=== PATIENT | female | born 1970 | race Caucasian/White ===

== ENCOUNTER 2023-12-08 12:58 | Emergency (ER) | payer OTHER, SELFPAY ==
[2023-12-08 13:00] VITALS: BP 133/79
--- NOTE | 2023-12-08 14:56 | ED.GENMED ---
History of Present Illness
<Erin Samuels PA-C - Last Filed: 12/08/23 23:22>
General
Chief Complaint: Throat Problem
Source: patient
Exam Limitations: none
Time Seen by Provider: 12/08/23 14:49
Nursing documentation reviewed up to this point in time: agreed with
Travel History
Have you had any contact with someone who has COVID-19?: No
Do you have any symptoms of coronavirus? Fever > 100 degrees, chills, cough, shortness of breath, sore throat, loss of taste or smell, muscle aches, or headache?: No
History of Present Illness
History of Present Illness:
Patient is a 53-year-old female with no significant past medical history presenting for evaluation of rapidly increasing blood. Patient states the goiter has been present for over 2 years but over the past 2 weeks has been increasing rapidly in
size. She saw her primary care provider back in April where they tested her thyroid levels which were normal range. Her PCP did refer her for an ultrasound of her thyroid which she never had completed. She does endorse some mild palpitations over
the past few weeks and fatigue. She came to the emergency department today due to the rapid increase in size for the past few weeks and concern with she denies any diarrhea, constipation, menstrual irregularities, fever, chills, weight loss. She
denies any sore throat, infectious symptoms.
She does have a family history of thyroid cancer.
Phy Exam
<Erin Samuels PA-C - Last Filed: 12/08/23 23:22>
Physical Exam
Physical Exam:
General: Well appearing and non-toxic
Vitals: Vital signs stable, afebrile
HEENT: Atraumatic, normocephalic; pupils equal round and reactive to light bilaterally, extraocular muscles intact, protecting airway, posterior pharynx nonerythematous with no tonsillar edema or exudates, uvula midline
Neck: Large goiter/thyroid mass on left anterior neck, normal range of motion of neck
CV: Regular rate and rhythm, heart sounds normal, no evidence of cyanosis
Resp: No evidence of respiratory distress, lungs clear, no accessory muscle use
Abd: Soft, nontender in all 4 quadrants, non-distended
Extremities: No deformities, no evidence of cyanosis or edema
Neuro: alert and oriented x 3, grossly
Psych: Somewhat anxious appearing
Skin: Intact, no rashes
Course
<Erin Samuels PA-C - Last Filed: 12/08/23 23:22>
Orders/Labs/Results
Orders:
Orders
12/08/23 15:17
Electrocardiogram (*1) Urgent
Reason for Study: Palpitations
EKG- Treatment ONCE
12/08/23 15:22
Complete Blood Count/With Diff Urgent
Comprehensive Metabolic Panel Urgent
Free T4 Urgent
TSH Reflex To Free T4 Urgent
Abnormal Lab Results
12/08/23
15:22
Hct 36.9 L %
(37.0-47.0)
TSH (Reflex) 0.37 L uIU/ml
(0.47-4.68)
12/08/23 15:22
12/08/23 15:22
Vital Signs
Initial and Last Documented VS:
Initial Vital Signs
Temp Pulse Resp BP Pulse Ox
98.1 F 75 16 133/79 99
12/08/23 13:00 12/08/23 13:00 12/08/23 13:00 12/08/23 13:00 12/08/23 13:00
Last Documented Vital Signs
Temp Pulse Resp BP Pulse Ox
98.1 F 71 16 128/81 99
12/08/23 13:00 12/08/23 17:11 12/08/23 17:11 12/08/23 17:11 12/08/23 17:11
<Tyrese Gallegos MD - Last Filed: 12/08/23 16:12>
Orders/Labs/Results
Orders:
Orders
12/08/23 15:17
Electrocardiogram (*1) Urgent
Reason for Study: Palpitations
EKG- Treatment ONCE
12/08/23 15:22
Complete Blood Count/With Diff Urgent
Comprehensive Metabolic Panel Urgent
Free T4 Urgent
TSH Reflex To Free T4 Urgent
Abnormal Lab Results
12/08/23
15:22
Hct 36.9 L %
(37.0-47.0)
TSH (Reflex) 0.37 L uIU/ml
(0.47-4.68)
12/08/23 15:22
12/08/23 15:22
Vital Signs
Initial and Last Documented VS:
Initial Vital Signs
Temp Pulse Resp BP Pulse Ox
98.1 F 75 16 133/79 99
12/08/23 13:00 12/08/23 13:00 12/08/23 13:00 12/08/23 13:00 12/08/23 13:00
Last Documented Vital Signs
Temp Pulse Resp BP Pulse Ox
98.1 F 71 16 128/81 99
12/08/23 13:00 12/08/23 17:11 12/08/23 17:11 12/08/23 17:11 12/08/23 17:11
<Erin Samuels PA-C - Last Filed: 12/08/23 23:22>
MDM/Problems Addressed
Differential Diagnosis Includes:
Graves disease, thyroiditis, subclinical thyroiditis, thyroid cancer, thyroid cyst
MDM/Problems Addressed:
Patient is a 53 year old female presenting for evaluation of goiter on anterior neck rapidly progressing in size over the past few weeks. Patient states has been present over 2 years and was seen by PCP in April but never had US performed. She
reports no history of abnormal thyroid function tests. She endorses some fatigue and heart palpitations. No fever, chills, sore throat, difficulty breathing, weight loss. Patients VSS. Physical exam as documented above. She does have a large,
somewhat irregular anterior left neck mass.
There are so infectious signs. Patient will require outpatient imaging. Will check EKG, basic labs, TSH today. Attending physician spoke with patients PCP to arrange prompt outpatient follow-up later this week.
CBC and CMP without any clinically significant abnormalities. TSH slightly decreased but T4 in normal range. EKG shows normal sinus rhythm without signs of ischemia. Patient stable for discharge with outpatient follow-up later this week. Patient
comfortable with this plan. All questions answered.
Chronic conditions affecting care:
N/A
Acute Exacerbation and/or Progression of Chronic Illness:
N/A
<Erin Samuels PA-C - Last Filed: 12/08/23 23:22>
*Pulse Oximetry
Patient hypoxic: no
*EKG
Interpreted by ED Provider?: Yes
EKG Intrepretation Date: 12/08/23
Interpretation: normal
Comparison EKG: no comparison EKG present
Heart Rate: 66
Rate: normal
Rhythm: sinus
[place]: normal axis
Interval: normal interval
Ischemia: no ischemia
*Interface Designer Interpretation
Rate: Interface Designer- N/A
*Critical Care Note
Total Time (30-74mins, 75-104mins- exclusive of procedures): Not Applicable
<Erin Samuels PA-C - Last Filed: 12/08/23 23:22>
Patient Management
Discussion with other providers: PCP (arranged close outpatient follow-up later this week)
ED Attending Note
<Erin Samuels PA-C - Last Filed: 12/08/23 23:22>
-
Portions of this chart may have been created with voice recognition software.� Occasional wrong word or��sound alike� substitutions may have occurred due to the inherent limitations of voice recognition software.
<Tyrese Gallegos MD - Last Filed: 12/08/23 16:12>
ED Attending Note
Patient seen and examined by attending physician: Yes
ED Attending Note:
HPI: 53-year-old female with no reported chronic medical issues presents to the emergency room for evaluation of a goiter. Patient says that she has had a lump on her thyroid for the past few years. She says that she saw her primary doctor for it
in April of this past year and was told to get an ultrasound but she never did. She says over the past month or 2 size has been steadily increasing and so she finally came in today 'to get it all taken care of.' She denies any sore throat or pain.
She says occasionally she has some trouble swallowing with but is able to eat and drink. She denies any fevers, chills, hot flashes, weight loss. Denies any other complaints.
ROS: Positive for anterior neck swelling; negative for dysphagia/odynophagia, neck pain, fevers, hot flashes, weight loss, chills/night sweats
Physical exam:
General: Awake, alert, oriented x3; somewhat anxious but no acute distress
Head: Normocephalic, atraumatic
Eyes: Conjunctiva normal, pupils equal round and reactive to light bilaterally
Throat: Airway intact, handling secretions
Neck: Trachea midline, patient has a large goiter/thyroid mass
Lungs: Clear to auscultation bilaterally, no wheezing, rales, rhonchi
Heart: Regular rate and rhythm, no murmurs, gallops, or rubs
Abd: Soft, non distended, nontender
Neuro: No gross deficits
Skin: no rash
Extremities: Warm and well-perfused
Differential diagnosis: Graves' disease, thyroiditis, thyroid cysts, thyroid cancer
Medical decision makin-year-old female presents for evaluation of a goiter which has been growing over the past few years to months�was previously recommended for an ultrasound but failed to follow-up and now she is coming to the emergency room
for assessment given increase in size over the past month or so. She has some very mild difficulty with swallowing from time to time but no significant obstructive symptoms. Airway is intact. Exam as above. Will check basic labs and thyroid
studies. I have placed a call to the patient's primary care physician and spoke with her directly�they will arrange for outpatient office follow-up this week to have this further assessed.
Chronic conditions affecting care: N/A
Acute exacerbation or progression of chronic illness: N/A
History source: Patient
Data reviewed: N/A
Medications/testing considered: N/A
Social determinants of health: N/A
Discussion with other providers: Discussed with patient's primary care physician
Discharge Plan
Departure
Patient Disposition: Home (Routine Discharge)
Date of Disposition: 12/08/23
Time of Disposition: 17:06
Patient with high blood pressure during this ER visit?: No
Condition: Good
Covid-19: Not Applicable
Discharge Problem:
Goiter
Instructions: Nodular goiter
Referrals:
Yaritza Cui MD [Family Provider] - Call in 1-3 days for appt (You should receive a call to schedule follow-up later this week with your primary doctor. If you not receive a call by tomorrow around noon, you should call to ensure follow-up.)
Activity Restrictions/Additional Instructions:
We spoke with your primary physician on the phone and they will see you later this week in the office to continue workup of this issue.
Thank you for visiting the Emergency Department at [facility].
1. Please schedule a follow up appointment as directed. Call first thing tomorrow morning to make an appointment.
2. If indicated, please take your medications as instructed and indicated on discharge paperwork.
3. If any of your symptoms do not improve, or persist, or become more severe within 6-12 hours, please return to the emergency department for further care.
4. Please return to the emergency department if you develop a headache, neck pain/stiffness, fever greater than 100.4F, chest pain, shortness of breath, persistent nausea, vomiting, slurred speech, difficulty walking, numbness/tingling, weakness,
signs of infection or any other symptoms that are worrisome to you.
Please call [phone] if you have any questions.
Interventions
Interventions:
*Risk Screen - Suicide Last Done: 12/08/23 13:00
*General Assessment Last Done: 12/08/23 15:28
*Neglect/Abuse Screening Last Done: 12/08/23 13:00
ED- Fall Risk Assessment Last Done: 12/08/23 17:14
*ED COVID-19 Vaccine History Last Done: 12/08/23 13:00
*Nursing Disposition Last Done: 12/08/23 17:14
ED-EENT Assessment Last Done: 12/08/23 15:28
ED- Pulmonary Assessment Last Done: 12/08/23 15:26
Discharge Date and Time
Discharge Date/Time: 12/08/23 17:16
[2023-12-08 15:26] VITALS: BP 123/74
[2023-12-08 15:41] LABS: % Basophils 0.5 % (0-2); % Eosinophils 1.4 % (0-6); % Immature Granulocytes 0.4 % (0-0.5); % Lymphocytes 25.9 % (20.5-51.1); % Monocytes 8.3 % (1.7-9.3); % Neutrophils 63.5 % (42.2-75.2); Absolute Eosinophils 0.1 10^3/uL (0-0.7); Absolute Lymphocytes 1.4 10^3/uL (1.2-3.4); Absolute Monocytes 0.5 10^3/uL (0.1-0.6); Absolute Neutrophils 3.5 10^3/uL (1.4-6.5); Hematocrit 36.9 % (37.0-47.0); Hemoglobin 12.2 g/dL (12.0-16.0); Mean Corp Hgb Conc. 33.1 g/dL (33.0-37.0); Mean Corpuscular Hgb 28.9 pg (27.0-31.0); Mean Corpuscular Volume 87.4 fL (81.0-99.0); Mean Platelet Volume 9.9 fL (7.4-10.4); Nucleated Red Blood Cells % 0 %; Platelet Count 337 10^3/uL (130-400); Red Blood Cell Count 4.22 10^6/uL (4.20-5.40); Red Cell Dist. Width 13.2 % (11.5-14.5); White Blood Cell Count 5.5 10^3/uL (4.8-10.8)
[2023-12-08 15:48] LABS: ALT (SGPT) 23 U/L (0-35); AST (SGOT) 27 U/L (14-36); Albumin 4.5 g/dl (3.5-5.0); Alkaline Phosphatase 120 U/L (38-126); Blood Urea Nitrogen 12 mg/dl (7-17); Calcium 9.4 mg/dl (8.4-10.2); Carbon Dioxide 27 mmol/L (22-30); Chloride 103 mmol/L (98-107); Glucose 89 mg/dl (70-99); Sodium 136 mmol/L (135-145); Total Bilirubin 0.6 mg/dl (0.2-1.3); Total Protein 7.6 g/dl (6.3-8.2); eGFR > 60.00
[2023-12-08 16:19] LABS: TSH Reflex To Free T4 0.37 uIU/ml (0.47-4.68)
[2023-12-08 16:49] LABS: Free T4 1.31 ng/dl (0.78-2.19)
[2023-12-08 17:11] VITALS: BP 128/81
== END 2023-12-08 17:16 | disposition home or self-care (01) ==
LOC: EMR 12:58
PROVIDERS: Physician Assistant; EMERGENCY PHYSICIAN Emergency Medicine; FAMILY PHYSICIAN Emergency Medicine
DX: R00.2 Palpitations (principal); E05.00 Thyrotoxicosis with diffuse goiter without thyrotoxic crisis or storm
CPT/HCPCS: 99283; 80053; 84439; 84443; 85025; 93005

== ENCOUNTER → 2025-05-16 15:31 | Outpatient (REF) | payer OTHER, SELFPAY | LOC: WDC 15:31 | PROVIDERS: ATTENDING PHYSICIAN Emergency Medicine | DX: Z12.31 Encounter for screening mammogram for malignant neoplasm of breast (principal) | CPT/HCPCS: 77063; 77067 ==